=== PATIENT | female | born 1975 | race Hispanic/Latino ===

== ENCOUNTER 2018-08-02 01:36 | Emergency (ER) | payer BC ==
[~2018-08-02] VITALS: Ht 152.4 cm; Wt 55.0 kg
[~2018-08-02 01:36] MED LIST: ALPRAZOLAM1 MG PO; BENTYL10 MG PO; CEPHALEXIN500 MG PO; CIPRO XR500 MG PO; CIPRO500 MG OR; CIPROFLOXACN500 MG PO; CYMBALTA30 MG PO; DESYREL50 MG PO; DICYCLOMINE10 MG PO; HYDROCO/APAP1 TA9 PO; LOMOTIL2.5 MG PO; LORTAB 10 PO; LORTAB 5 OR; LORTAB5 PO; MELOXICAM7.5 MG PO; METRONIDAZOL250 MG PO; NO HOME MEDS; OMEPRAZOLE20 MG PO; OXYCOD/APAP1 TA4 PO; PANTOPRAZOLE SO40 MG PO; PHENERGAN25 MG/TAB PO; PREVACID30 M2 PO; PRILOSEC20 MG PO; ULTRAM50 M1 PO; ULTRAM50 MG PO; XANAX0.25 MG PO; XANAX1 MG PO; ZANTAC150 M1 PO; ZOFRAN ODT4 MG PO; [UNRECOGNIZED DRUG - OTHER] PO
[2018-08-02 02:24] LABS: HEMATOCRIT 42.1 % (37.0-47.0); HEMOGLOBIN 14.2 g/dl (12.0-16.0); IMMATURE GRANULOCYTES 0.4 % (0.0-5.0); MEAN CELL VOLUME 83.4 fL CALC (80.0-100.0); MEAN CORPUSCULAR HGB 28.1 pG CALC (26.0-32.0); MEAN CORPUSCULAR HGB CONC 33.7 g/L CALC (32.0-36.0); NEUT# 8.98 thou/uL (2.00-7.15); RED BLOOD COUNT 5.05 mill/uL (4.20-5.60); RED CELL DISTRI WIDTH 11.8 % (11.5-15.5)
[2018-08-02 02:35] LABS: ALBUMIN 4.6 g/dL (3.2-5.0); ALKALINE PHOSPHATASE 80 u/l (38-126); ANION GAP 16 (6-22 (CALC)); BILIRUBIN, TOTAL 0.8 mg/dL (0.0-1.4); BUN 11 mg/dL (7-17); BUN/CREATININE RATIO 22 (12-20 (CALC)); CARBON DIOXIDE 26 mmol/l (22-30); CHLORIDE 101 mmol/l (95-108); CREATININE 0.5 mg/dL (0.5-1.0); GFR > 60 ML/MIN (>=60 (CALC)); GFR FOR AFR.AMER. > 60 ML/MIN (>=60 (CALC)); SGOT/AST 20 u/l (14-36); SODIUM 140 mmol/l (137-146); TOTAL PROTEIN 7.9 g/dL (6.3-8.2)
[2018-08-02 02:37] LABS: POTASSIUM 2.7 mmol/l (3.5-5.1)
[2018-08-02 02:47] LABS: MYOGLOBIN 18 ng/mL (0 - 62)
[2018-08-02] MEDS ORDERED: TORADOL PO (02:56)
[2018-08-02] MEDS ORDERED: POTASSIUM CHLO20 ME1 PO (02:56)
[2018-08-02 06:00] VITALS: BP 124/59
[2018-08-02] MEDS ORDERED: BACTRIM DS1 TAB PO (21:21)
[2018-08-02] MEDS ORDERED: XANAX XR1 MG PO (21:21)
== END 2018-08-02 06:00 | disposition home or self-care (01) | DRG 313 ==
LOC: ED 01:36
PROVIDERS: Family Medicine
DX: R07.89 Other chest pain (principal); N39.0 Urinary tract infection, site not specified; F13.230 Sedative, hypnotic or anxiolytic dependence with withdrawal, uncomplicated; R06.02 Shortness of breath; M54.2 Cervicalgia; H91.90 Unspecified hearing loss, unspecified ear; H53.8 Other visual disturbances
CPT/HCPCS: J2060

== ENCOUNTER 2018-08-02 18:07 | Emergency (ER) | payer BC ==
[~2018-08-02] VITALS: Ht 152.4 cm; Wt 50.0 kg
[~2018-08-02 18:07] MED LIST changes: +POTASSIUM CHLO20 ME1 PO; +TORADOL PO
[2018-08-02 19:31] LABS: TSH, 3RD GENERATION 0.96 uIU/mL (0.47 - 4.68)
[2018-08-02 20:29] LABS: URINE BLOOD DIPSTICK SMALL (NEGATIVE); URINE COLOR YELLOW; URINE GLUCOSE - DIPSTICK NEGATIVE (NEGATIVE); URINE KETONE >=80 mg/dL (NEGATIVE); URINE NITRITE - DIPSTICK NEGATIVE (Negative); URINE PROTEIN - DIPSTICK TRACE mg/dL (NEG-TRACE); URINE SPECIFIC GRAVITY >=1.030
[2018-08-02 20:33] LABS: URINE BILIRUBIN - DIPSTICK NEGATIVE (NEGATIVE); URINE LEUK ESTERASE SMALL (NEGATIVE)
[2018-08-02 20:34] LABS: BARBITURATES NEGATIVE (NEGATIVE); COCAINE NEGATIVE (NEGATIVE); METHADONE NEGATIVE (NEGATIVE); OXCYCODONE NEGATIVE (NEGATIVE); TETRAHYDROCANNABIONOL NEGATIVE (NEGATIVE); TRICYLIC ANTIDEPRESSANTS NEGATIVE (NEGATIVE)
[2018-08-02 20:37] LABS: URINE BACTERIA FEW hpf; URINE SQUAMOUS EPITHELIAL CELL MANY EPI/hpf (0-FEW)
[2018-08-02 20:50] LABS: ANION GAP 16 (6-22 (CALC)); BUN 9 mg/dL (7-17); BUN/CREATININE RATIO 20 (12-20 (CALC)); CARBON DIOXIDE 23 mmol/l (22-30); CHLORIDE 105 mmol/l (95-108); CREATININE 0.4 mg/dL (0.5-1.0); GFR > 60 ML/MIN (>=60 (CALC)); GFR FOR AFR.AMER. > 60 ML/MIN (>=60 (CALC)); MAGNESIUM 1.8 mg/dL (1.6-2.3); POTASSIUM 3.4 mmol/l (3.5-5.1); SODIUM 141 mmol/l (137-146)
[2018-08-02] MEDS ORDERED: XANAX XR1 MG PO (21:21)
[2018-08-02] MEDS ORDERED: BACTRIM DS1 TAB PO (21:21)
[2018-08-02 21:30] VITALS: BP 118/69
== END 2018-08-02 21:45 | disposition home or self-care (01) | DRG 897 ==
LOC: ED 18:07
PROVIDERS: Family Medicine
DX: F13.230 Sedative, hypnotic or anxiolytic dependence with withdrawal, uncomplicated (principal); N39.0 Urinary tract infection, site not specified; H53.8 Other visual disturbances; R06.02 Shortness of breath; M54.2 Cervicalgia; H91.90 Unspecified hearing loss, unspecified ear
CPT/HCPCS: J2060

== ENCOUNTER 2019-06-10 | Emergency (ER) | payer BC ==
[~2019-06-10] MED LIST changes: +BACTRIM DS1 TAB PO; +XANAX XR1 MG PO
[2019-06-10 07:28] LABS: HEMATOCRIT 45.9 % (37.0-47.0); HEMOGLOBIN 14.8 g/dl (12.0-16.0); IMMATURE GRANULOCYTES 0.3 % (0.0-5.0); MEAN CELL VOLUME 86.1 fL CALC (80.0-100.0); MEAN CORPUSCULAR HGB 27.8 pG CALC (26.0-32.0); MEAN CORPUSCULAR HGB CONC 32.2 g/L CALC (32.0-36.0); NEUT# 5.63 thou/uL (2.00-7.15); RED BLOOD COUNT 5.33 mill/uL (4.20-5.60); RED CELL DISTRI WIDTH 11.9 % (11.5-15.5)
[2019-06-10 07:44] LABS: ALBUMIN 4.6 g/dL (3.2-5.0); ALKALINE PHOSPHATASE 93 u/l (38-126); ANION GAP 14 (6-22 (CALC)); BUN 8 mg/dL (7-17); BUN/CREATININE RATIO 17 (12-20 (CALC)); CARBON DIOXIDE 27 mmol/l (22-30); CHLORIDE 101 mmol/l (95-108); CREATININE 0.5 mg/dL (0.5-1.0); GFR > 60 ML/MIN (>=60 (CALC)); GFR FOR AFR.AMER. > 60 ML/MIN (>=60 (CALC)); POTASSIUM 3.9 mmol/l (3.5-5.1); SGOT/AST 30 u/l (14-36); SODIUM 137 mmol/l (137-146); TOTAL PROTEIN 8.5 g/dL (6.3-8.2)
[2019-06-10 09:17] LABS: URINE BILIRUBIN - DIPSTICK NEGATIVE (NEGATIVE); URINE BLOOD DIPSTICK TRACE-INTACT (NEGATIVE); URINE GLUCOSE - DIPSTICK NEGATIVE (NEGATIVE); URINE KETONE >=80 mg/dL (NEGATIVE); URINE LEUK ESTERASE NEGATIVE (NEGATIVE); URINE NITRITE - DIPSTICK NEGATIVE (Negative); URINE PH 6.5 (4.5-8.0); URINE PROTEIN - DIPSTICK NEGATIVE (NEG-TRACE); URINE SPECIFIC GRAVITY 1.025; URINE UROBILINOGEN - DIPSTICK 0.2 E.U./dL (0.2)
[2019-06-10 09:18] LABS: URINE COLOR DK. YELLOW
[2019-06-11] MEDS ORDERED: MOTRIN400 MG PO (14:01)
== END 2019-06-10 12:50 | disposition home or self-care (01) | DRG 313 ==
PROVIDERS: Family Medicine
DX: R07.9 Chest pain, unspecified (principal)

== ENCOUNTER 2019-06-11 | Emergency (ER) | payer BC ==
[2019-06-11 12:16] LABS: HEMATOCRIT 46.1 % (37.0-47.0); HEMOGLOBIN 15.1 g/dl (12.0-16.0); IMMATURE GRANULOCYTES 0.2 % (0.0-5.0); MEAN CELL VOLUME 84.3 fL CALC (80.0-100.0); MEAN CORPUSCULAR HGB 27.6 pG CALC (26.0-32.0); MEAN CORPUSCULAR HGB CONC 32.8 g/L CALC (32.0-36.0); NEUT# 7.26 thou/uL (2.00-7.15); RED BLOOD COUNT 5.47 mill/uL (4.20-5.60); RED CELL DISTRI WIDTH 11.8 % (11.5-15.5)
[2019-06-11 13:09] LABS: ALBUMIN 4.9 g/dL (3.2-5.0); ALKALINE PHOSPHATASE 97 u/l (38-126); BILIRUBIN, TOTAL 1.1 mg/dL (0.0-1.4); BUN 7 mg/dL (7-17); BUN/CREATININE RATIO 15 (12-20 (CALC)); CHLORIDE 102 mmol/l (95-108); CREATININE 0.5 mg/dL (0.5-1.0); GFR > 60 ML/MIN (>=60 (CALC)); GFR FOR AFR.AMER. > 60 ML/MIN (>=60 (CALC)); POTASSIUM 3.5 mmol/l (3.5-5.1); SGOT/AST 32 u/l (14-36); SODIUM 138 mmol/l (137-146); TOTAL PROTEIN 8.8 g/dL (6.3-8.2)
[2019-06-11 13:14] LABS: ANION GAP 19 (6-22 (CALC)); CARBON DIOXIDE 21 mmol/l (22-30)
[2019-06-11] MEDS ORDERED: MOTRIN400 MG PO (14:01)
== END 2019-06-11 14:24 | disposition home or self-care (01) | DRG 313 ==
PROVIDERS: Family Medicine
DX: R07.9 Chest pain, unspecified (principal); I10 Essential (primary) hypertension

== ENCOUNTER 2022-03-12 22:48 | Emergency (ER) | payer SELFPAY ==
[~2022-03-12] VITALS: Ht 152.4 cm; Wt 64.5 kg
[~2022-03-12 22:48] MED LIST changes: +MOTRIN400 MG PO
[2022-03-12 23:28] LABS: HEMATOCRIT 40.9 % (37.0-47.0); HEMOGLOBIN 13.9 g/dl (12.0-16.0); IMMATURE GRANULOCYTES 0.2 % (0.0-5.0); MEAN CELL VOLUME 84.7 fL CALC (80.0-100.0); MEAN CORPUSCULAR HGB 28.8 pG CALC (26.0-32.0); NEUT# 4.27 thou/uL (2.00-7.15); RED BLOOD COUNT 4.83 mill/uL (4.20-5.60); RED CELL DISTRI WIDTH 12.7 % (11.5-15.5)
[2022-03-12 23:42] LABS: ALBUMIN 4.7 g/dL (3.2-5.0); ALKALINE PHOSPHATASE 96 u/l (38-126); BILIRUBIN, TOTAL 0.7 mg/dL (0.0-1.4); BUN 3 mg/dL (7-17); BUN/CREATININE RATIO 5 (12-20 (CALC)); CHLORIDE 104 mmol/l (95-108); CPK 44 u/l (30-165); CREATININE 0.5 mg/dL (0.5-1.0); GFR FOR AFR.AMER. > 60 ML/MIN (>=60 (CALC)); GFR OTHER RACES > 60 ML/MIN (>=60 (CALC)); MAGNESIUM 1.9 mg/dL (1.6-2.3); POTASSIUM 3.1 mmol/l (3.5-5.1); SGOT/AST 25 u/l (14-36); SODIUM 142 mmol/l (137-146); TOTAL PROTEIN 8.6 g/dL (6.3-8.2)
[2022-03-12 23:46] VITALS: BP 148/71
[2022-03-12 23:51] LABS: MYOGLOBIN 19 ng/mL (0 - 62)
[2022-03-13] VITALS: BP 149/82
[2022-03-13 00:02] LABS: ACT PARTIAL THROMBO TIME 24.6 SECONDS (20.0-32.5); ANION GAP 15 (6-22 (CALC)); CARBON DIOXIDE 26 mmol/l (22-30); PROTHROMBIN TIME 10.1 SECONDS (9.0-12.5)
[2022-03-13 00:14] LABS: TSH, 3RD GENERATION 8.13 uIU/mL (0.47 - 4.68)
[2022-03-13 00:30] VITALS: BP 137/74
[2022-03-13 00:43] LABS: URINE BILIRUBIN - DIPSTICK NEGATIVE (NEGATIVE); URINE BLOOD DIPSTICK LARGE (NEGATIVE); URINE COLOR RED; URINE GLUCOSE - DIPSTICK NEGATIVE (NEGATIVE); URINE KETONE NEGATIVE (NEGATIVE); URINE LEUK ESTERASE TRACE (NEGATIVE); URINE PROTEIN - DIPSTICK TRACE mg/dL (NEG-TRACE); URINE SPECIFIC GRAVITY <=1.005; URINE UROBILINOGEN - DIPSTICK 0.2 E.U./dL (0.2)
[2022-03-13] MEDS ORDERED: PREDNISONE20 MG PO (00:43)
[2022-03-13] MEDS ORDERED: VALTREX1 GM PO (00:43)
[2022-03-13] MEDS ORDERED: ORPHENADRINE100 MG PO (00:43)
[2022-03-13 00:45] VITALS: BP 127/79
[2022-03-13 00:45] LABS: URINE NITRITE - DIPSTICK NEGATIVE (Negative)
[2022-03-13 01:00] VITALS: BP 120/80
[2022-03-13 01:08] LABS: URINE BACTERIA MODERATE hpf; URINE RBC 50-100 RBC/hpf (0-5); URINE SQUAMOUS EPITHELIAL CELL FEW EPI/hpf (0-FEW)
[2022-03-13 01:15] VITALS: BP 123/77
== END 2022-03-13 01:30 | disposition home or self-care (01) | DRG 74 ==
LOC: ED 22:48
PROVIDERS: Family Medicine
DX: G51.0 Bell's palsy (principal); M79.10 Myalgia, unspecified site; F41.9 Anxiety disorder, unspecified; I10 Essential (primary) hypertension

== ENCOUNTER 2022-03-14 04:38 | Emergency (ER) | payer SELFPAY ==
[~2022-03-14] VITALS: Ht 152.4 cm; Wt 64.5 kg
[2022-03-14] VITALS (10 sets, daily range): BP systolic 125–184; BP diastolic 78–112
[~2022-03-14 04:38] MED LIST changes: +ORPHENADRINE100 MG PO; +PREDNISONE20 MG PO; +VALTREX1 GM PO
[2022-03-14 05:15] LABS: HEMATOCRIT 39.8 % (37.0-47.0); HEMOGLOBIN 13.3 g/dl (12.0-16.0); IMMATURE GRANULOCYTES 0.2 % (0.0-5.0); MEAN CELL VOLUME 85.6 fL CALC (80.0-100.0); MEAN CORPUSCULAR HGB 28.6 pG CALC (26.0-32.0); MEAN CORPUSCULAR HGB CONC 33.4 g/dL CAL (32.0-36.0); NEUT# 9.15 thou/uL (2.00-7.15); RED BLOOD COUNT 4.65 mill/uL (4.20-5.60); RED CELL DISTRI WIDTH 12.6 % (11.5-15.5)
[2022-03-14 05:41] LABS: ALBUMIN 4.8 g/dL (3.2-5.0); ALKALINE PHOSPHATASE 85 u/l (38-126); ANION GAP 17 (6-22 (CALC)); BILIRUBIN, TOTAL 0.8 mg/dL (0.0-1.4); BUN 6 mg/dL (7-17); BUN/CREATININE RATIO 11 (12-20 (CALC)); CARBON DIOXIDE 23 mmol/l (22-30); CHLORIDE 103 mmol/l (95-108); CREATININE 0.6 mg/dL (0.5-1.0); GFR FOR AFR.AMER. > 60 ML/MIN (>=60 (CALC)); GFR OTHER RACES > 60 ML/MIN (>=60 (CALC)); MAGNESIUM 1.9 mg/dL (1.6-2.3); POTASSIUM 3.2 mmol/l (3.5-5.1); SGOT/AST 27 u/l (14-36); SODIUM 140 mmol/l (137-146); TOTAL PROTEIN 8.3 g/dL (6.3-8.2)
[2022-03-14 06:19] LABS: URINE BILIRUBIN - DIPSTICK NEGATIVE (NEGATIVE); URINE BLOOD DIPSTICK LARGE (NEGATIVE); URINE COLOR RED; URINE GLUCOSE - DIPSTICK NEGATIVE (NEGATIVE); URINE KETONE 15 mg/dL (NEGATIVE); URINE LEUK ESTERASE NEGATIVE (NEGATIVE); URINE PROTEIN - DIPSTICK NEGATIVE (NEG-TRACE); URINE UROBILINOGEN - DIPSTICK 0.2 E.U./dL (0.2)
[2022-03-14 06:20] LABS: URINE NITRITE - DIPSTICK NEGATIVE (Negative)
[2022-03-14 06:25] LABS: URINE BACTERIA FEW hpf; URINE MUCUS FEW hpf (NONE-FEW); URINE RBC 50-100 RBC/hpf (0-5); URINE SQUAMOUS EPITHELIAL CELL FEW EPI/hpf (0-FEW)
== END 2022-03-14 07:22 | disposition home or self-care (01) | DRG 897 ==
LOC: ED 04:38
PROVIDERS: Family Medicine
DX: F15.23 Other stimulant dependence with withdrawal (principal); I10 Essential (primary) hypertension; F41.9 Anxiety disorder, unspecified
CPT/HCPCS: J2060

== ENCOUNTER 2024-05-28 12:43 | Emergency (ER) | payer SELFPAY ==
[~2024-05-28] VITALS: Ht 152.4 cm; Wt 68.0 kg
[2024-05-28] VITALS (10 sets, daily range): BP systolic 115–139; BP diastolic 46–82
[2024-05-28] MEDS ORDERED: SODIUM CHLORIDE 0.9% 1,000 ML IV ONE (12:55)
[2024-05-28] MEDS ORDERED: MORPHINE SULFATE 4 MG/ML VIAL IV ONE (12:55)
[2024-05-28] MEDS ORDERED: ONDANSETRON HCl 4 MG/2 ML SDV IV ONE (12:55)
[2024-05-28 13:12] LABS: BASO% 0.3 % (0-3); EOS% 0.1 % (0-8); HEMATOCRIT 40.7 % (37.0-47.0); HEMOGLOBIN 13.6 g/dl (12.0-16.0); IMMATURE GRANULOCYTES 0.4 % (0.0-5.0); LYMPH% 21.4 % (15-41); MEAN CELL VOLUME 83.2 fL CALC (80.0-100.0); MEAN CORPUSCULAR HGB 27.8 pG CALC (26.0-32.0); MEAN CORPUSCULAR HGB CONC 33.4 g/dL CAL (32.0-36.0); MONO% 5.4 % (2-13); NEUT# 5.07 thou/uL (2.00-7.15); NEUT% 72.4 % (42-76); RED BLOOD COUNT 4.89 mill/uL (4.20-5.60)
[2024-05-28 13:25] LABS: ALBUMIN 4.5 g/dL (3.2-5.0); BILIRUBIN, TOTAL 0.6 mg/dL (0.02-1.3); CREATININE 0.6 mg/dL (0.5-1.0); POTASSIUM 3.6 mmol/l (3.5-5.1); TOTAL PROTEIN 8.2 g/dL (6.3-8.2)
[2024-05-28] MEDS ORDERED: KETOROLAC TROMETHAMINE 30 MG/ML SDV IV ONE (14:35)
[2024-05-28 14:40] LABS: URINE BILIRUBIN - DIPSTICK Negative (NEGATIVE); URINE BLOOD DIPSTICK Small (NEGATIVE); URINE GLUCOSE - DIPSTICK Negative (NEGATIVE); URINE KETONE Negative (NEGATIVE); URINE LEUK ESTERASE Trace (NEGATIVE); URINE NITRITE - DIPSTICK Negative (Negative); URINE PROTEIN - DIPSTICK Negative (NEG-TRACE); URINE UROBILINOGEN - DIPSTICK 0.2 E.U./dL (0.2)
[2024-05-28 15:00] LABS: URINE COLOR Yellow
[2024-05-28 15:02] LABS: URINE BACTERIA RARE hpf; URINE MUCUS FEW hpf (NONE-FEW); URINE SQUAMOUS EPITHELIAL CELL RARE EPI/hpf (0-FEW); URINE WBC 0-2 WBC/hpf (0-5)
== END 2024-05-28 15:30 | disposition home or self-care (01) | DRG 392 ==
LOC: ED 12:43
PROVIDERS: Family Medicine
DX: R10.11 Right upper quadrant pain (principal); R10.31 Right lower quadrant pain; K59.00 Constipation, unspecified; I10 Essential (primary) hypertension; F41.9 Anxiety disorder, unspecified; Z90.49 Acquired absence of other specified parts of digestive tract
CPT/HCPCS: J2405; Q9967